=== PATIENT | male | born 1960 | race Caucasian/White ===

== ENCOUNTER 2019-06-16 06:54 | Observation (INO) ==
[~2019-06-16 06:54] MED LIST: SENSORCAINE 0.25%/EPI 1:200,000 ONE
[2019-06-16] MEDS ORDERED: FENTANYL ONE (07:15)
[2019-06-16] MEDS ORDERED: DIPRIVAN 1% ONE ×2 (07:15→09:31)
[2019-06-16] MEDS ORDERED: ZOFRAN ONE (07:20)
[2019-06-16] MEDS ORDERED: QUELICIN (DOSE) ONE ×2 (07:20→09:59)
[2019-06-16] MEDS ORDERED: ZEMURON ONE ×3 (07:20→11:34)
[2019-06-16] MEDS ORDERED: SENSORCAINE 0.25%/EPI 1:200,000 INJ ONE (07:45)
[2019-06-16] MEDS ORDERED: KEFZOL 1 GM/D5W 2 GM/100 ML IVPB ONE (08:00)
[2019-06-16] MEDS ORDERED: REGLAN ONE (08:00)
[2019-06-16] MEDS ORDERED: LR 1,000 ML ONE ×2 (08:00→08:16)
[2019-06-16] MEDS ORDERED: PEPCID ONE (08:00)
[2019-06-16] MEDS ORDERED: B & O 16A SUPP ONE (08:16)
[2019-06-16 08:35] LABS: HEMATOCRIT 43.3 % (42.0-52.0); HEMOGLOBIN 14.6 g/dL (14.0-18.0); MCH 30.5 PG (27-31); MCHC 33.7 g/dL (33-37); MCV 90.6 FL (81-99); MPV 10.3 FL (7.4-10.4); RBC 4.78 XMIL (4.7-6.1); RDW 12.9 % (11.5-14.5); WBC 8.49 X1000 (4.8-10.8)
[2019-06-16 08:59] LABS: AGAP 10; BUN 13 mg/dL (8-22); CALCIUM 9.1 mg/dL (8.8-10.2); CHLORIDE 103 mmol/L (98-107); COSMO 280; CREATININE 0.9 mg/dL (0.7-1.2); ESTIMATED GFR > 60; GLUCOSE 105 mg/dL (70-104); POTASSIUM 4.2 mmol/L (3.5-5.1); SODIUM 140 mmol/L (136-145); TCO2 27 mmol/L (25-35)
[2019-06-16 09:08] LABS: INR 1.02; PROTIME 13.5 Seconds (11.0-16.0)
[2019-06-16 09:09] LABS: PTT 32.6 Seconds (22.3-41.8)
[2019-06-16] MEDS ORDERED: BRIDION ONE (09:29)
[2019-06-16 10:53] LABS: URINE SOURCE CATH
[2019-06-16 11:02] LABS: URINE WBC <10 /HPF (<10)
[2019-06-16 11:03] LABS: BILIRUBIN URINE NEGATIVE (NEGATIVE); BLOOD URINE NEGATIVE (NEGATIVE); COLOR YELLOW; GLUCOSE URINE NEGATIVE (NEGATIVE); KETONE URINE NEGATIVE (NEGATIVE); LEUKOCYTES URINE NEGATIVE (NEGATIVE); NITRITE URINE NEGATIVE (NEGATIVE); PH URINE 5.5; PROTEIN URINE NEGATIVE (NEGATIVE); SP GRAVITY URINE 1.019; TURBIDITY URINE CLEAR (CLEAR); UR EPITHELIAL CELLS <10 /HPF (<10); URINE BACTERIA NEGATIVE /HPF; URINE RBC <10 /HPF (<10); UROBILINOGEN URINE NORMAL (NORMAL)
[2019-06-16] MEDS ORDERED: DILAUDID ONE (11:57)
[2019-06-16] MEDS ORDERED: XYLOCAINE-MPF 2% ONE (12:05)
[2019-06-16] MEDS: DILAUDID ONE ×4 (12:48→13:12)
[2019-06-16] MEDS ORDERED: NS 1,000 ML ONE (12:55)
[2019-06-16] MEDS ORDERED: MORPHINE IV PRN (13:31)
[2019-06-16] MEDS ORDERED: PERCOCET-10 ONE (13:32)
[2019-06-16] MEDS ORDERED: ZOFRAN IV PRN (13:45)
[2019-06-16] MEDS ORDERED: LABETALOL IV PRN (13:45)
[2019-06-16] MEDS ORDERED: BENADRYL LIQUID PO PRN (13:45)
[2019-06-16] MEDS ORDERED: PHENERGAN IV PRN (13:45)
[2019-06-16] MEDS ORDERED: OXY IR PO PRN ×2 (13:45)
[2019-06-16] MEDS ORDERED: DITROPAN PO PRN (13:45)
[2019-06-16] MEDS ORDERED: PHENERGAN PO PRN (13:45)
[2019-06-16] MEDS ORDERED: BENADRYL IV PRN (13:45)
[2019-06-16] MEDS ORDERED: PHENERGAN PR PRN (13:45)
[2019-06-16] MEDS ORDERED: SODIUM CHLORIDE 0.9% INJ PRN (13:45)
[2019-06-16] MEDS ORDERED: DILAUDID IV PRN (13:45)
[2019-06-16] MEDS ORDERED: OFIRMEV 1000 MG/ISOTONIC SOLN 1,000 MG/100 ML BOTTLE IV PRN (16:00)
[2019-06-16] MEDS: KEFZOL 2 GM/D5W 2 GM/50 ML IVPB IV SCH (16:43)
[2019-06-16] MEDS: NS 1,000 ML IV SCH (16:43)
[2019-06-16] MEDS: OXY IR PO SCH ×2 (16:43→22:06)
[2019-06-16] MEDS ORDERED: NORVASC PO SCH (21:00)
[2019-06-16] MEDS ORDERED: PRILOSEC PO SCH (21:00)
[2019-06-16] MEDS ORDERED: FLEXERIL PO SCH (21:00)
[2019-06-16] MEDS ORDERED: LIPITOR PO SCH (21:00)
[2019-06-16] MEDS: COLACE PO SCH (22:06)
[2019-06-16] MEDS: PERIDEX MT SCH (22:10)
[2019-06-17] MEDS: KEFZOL 2 GM/D5W 2 GM/50 ML IVPB IV SCH ×3 (02:17→09:33)
[2019-06-17] MEDS: NS 1,000 ML IV SCH (02:17)
[2019-06-17 07:29] LABS: HEMATOCRIT 40.7 % (42.0-52.0); HEMOGLOBIN 13.6 g/dL (14.0-18.0); MCH 30.5 PG (27-31); MCHC 33.4 g/dL (33-37); MCV 91.3 FL (81-99); MPV 10.5 FL (7.4-10.4); RBC 4.46 XMIL (4.7-6.1); WBC 14.07 X1000 (4.8-10.8)
[2019-06-17 07:35] VITALS: BP 134/78
[2019-06-17] MEDS: PERIDEX MT SCH (07:59)
[2019-06-17] MEDS: OXY IR PO SCH (07:59)
[2019-06-17] MEDS: COLACE PO SCH (07:59)
[2019-06-17 08:00] LABS: AGAP 9; BUN 13 mg/dL (8-22); CALCIUM 8.5 mg/dL (8.8-10.2); CHLORIDE 102 mmol/L (98-107); COSMO 273; CREATININE 0.8 mg/dL (0.7-1.2); ESTIMATED GFR > 60; GLUCOSE 124 mg/dL (70-104); SODIUM 136 mmol/L (136-145); TCO2 25 mmol/L (25-35)
--- NOTE | 2019-07-18 12:01 | OPERATIVE NOTE ---
PROCEDURE DATE: 06/16/2019 SURGEON: Dr. Elia Rivera. PREOPERATIVE DIAGNOSIS: High-risk prostate adenocarcinoma, elevated prostate-specific antigen. POSTOPERATIVE DIAGNOSIS: High-risk prostate adenocarcinoma, elevated prostate-specific antigen. PROCEDURE NAME: Robotic-assisted laparoscopic prostatectomy with bilateral pelvic lymph node dissection and laparoscopic urethral suspension. INDICATIONS: A 59-year-old male with high-grade prostate cancer. He had PSA elevation up to 7.6. He underwent prostate biopsy on 05/12/2019. Pathology revealed Marion 8 prostate adenocarcinoma in 6 out of 12 cores. He had unremarkable bone scan and CAT scan, and wants to proceed with definitive surgical intervention. He was counseled on the nature of his aggressive disease and higher than typical risk of long-term urinary incontinence and erectile dysfunction. He wants to proceed and voiced understanding. FINDINGS: Watertight vesicourethral anastomosis at 240 mL at the conclusion of the case. DESCRIPTION OF PROCEDURE: After obtaining informed consent, the patient was brought to the operating room. Perioperative antibiotics and general endotracheal anesthesia were administered. He was placed in the lithotomy position, prepped and draped in a sterile fashion. An 18-[place] Dawson catheter was inserted and bladder was drained. We made a small stab incision in his left upper quadrant and introduced a Veress needle connected to a saline-filled syringe. We confirmed positive drop test, followed by aspiration of fluid in the syringe without evidence of GI contents or blood. This was followed by insufflating pneumoperitoneal cavity to 15 mmHg. Following that, we used 10 mL of Marcaine with epinephrine to anesthetize the standard trocar sites. He has had left robotic partial nephrectomy for large cyst and I used 1 of those ports as our clinical trials assistant port. Bovie electrocautery was used to incise the skin. A 12 mm trocar was introduced, followed by insertion of a robotic camera. The peritoneal cavity was examined and I was able to place the rest of the trocars under direct vision. He was then placed in steep Trendelenburg position and the robot was docked. Peritoneum was incised 3 cm above the rectum and dissection extended until right vas deferens was identified, dissected, and transected, followed by identification and isolation of right seminal vesicle. We then isolated, dissected, and transected the left vas deferens, followed by identification of left seminal vesicle. We dissected anterior to vas deferens to the level of prostate and then posteriorly by incising the Denonvilliers' fascia and developing perirectal space. We incised lateral to medial umbilical ligament on either side, allowing us to drop the bladder. Once space of Retzius was accessed, fat was cleared off of endopelvic fascia. The fascia was incised bilaterally and dissection followed the contour of the prostate toward the apex. Puboprostatic ligaments were divided sharply. The superficial dorsal venous complex was controlled with bipolar electrocautery. Deep dorsal venous complex was controlled with 0 V-Loc suture in a [id number] fashion with periosteal elevation. Bladder neck was identified by gentle tugging on the Dawson catheter with the balloon in place. Monopolar cautery was used to incise the bladder neck. Dawson catheter came into the view and was placed on anterior traction. The bladder neck was transected circumferentially and then the plane was developed between the bladder and the prostate, allowing us to ultimately visualize the previously dissected seminal vesicles and vas deferens. We brought those and placed those on anterior traction. Neurovascular bundles were identified posterolaterally and freed with Hem-O- Rajesh clips. Judicious cautery was used. This was followed by dissecting posterior to the prostate to its apex. We then sharply divided the apex. I did not use maximal urethral length preservation technique given the aggressive nature and extent of his disease. Following that, the prostate was free. The examination of the operative field showed no evidence of active bleeding. We decreased the pneumoperitoneum pressure to 3 mmHg and confirmed excellent hemostasis. Attention was turned to the pelvic lymph node dissection. On the right side, the bladder was reflected medially with the fourth arm. Right external iliac vein was identified and lymph node packet was grasped just caudal to it. The lymph node packet was carefully dissected off with the following boundaries: Laterally pelvic side wall, medially perivesical fat, cephalad to the confluence of the external iliac vein and to common iliac vein, and posteriorly to the obturator vessel and the nerve. Please note, the obturator nerves were seen and preserved during dissection. The lymph node packet was placed into EndoCatch bag. Decreasing pneumoperitoneum pressure to 3 mmHg revealed no evidence of bleeding. Surgicel SNoW hemostatic agent was placed into the lymphadenectomy bed. We performed the same thing on the left side with identical margins. The lymph node packet was also placed into EndoCatch bag. Decreased pneumoperitoneal pressure showed no evidence of active bleeding and the Surgicel SNoW hemostatic agent was placed into the lymphadenectomy bed. Attention was then turned to Kenneth stitch. Perivesical and periurethral fascia were reapproximated using 3 V-Loc suture and those sutures were saved for future urethral suspension. Formal vesicourethral anastomosis was performed with another 3-0 V-Loc suture in a clockwise and counterclockwise fashion, ultimately cross-tying the sutures. Once that was done, we placed an 18- [place] fresh Dawson catheter and vesicoureteral anastomosis was tested with 240 mL of sterile fluid. There was no evidence of leakage. We then decreased pneumoperitoneal pressure and once again inspected for hemostasis. Following that, laparoscopic urethral suspension was performed by using previously placed Kenneth sutures and threading them through the periosteum just lateral to the mid pubis and elevating the urethra to appropriate traction. We then decreased pneumoperitoneal pressure one last time to 3 mmHg and inspected the entire field. There was no evidence of bleeding. There was no evidence of obvious injury. Given his generalized oozing, I elected to place a Kb drain through the fourth arm. It was introduced under direct vision and secured to the skin with 2-0 nylon suture. The robot was then undocked. He was returned in lithotomy position. Supraumbilical incision was extended and the prostate was delivered as well as the lymph nodes. All wounds were copiously irrigated. A #1 PDS suture was used to close the supraumbilical fascia in a running style. [employer] trocar fascia was closed with 0 Vicryl suture in a [id number] fashion. Wounds were irrigated again. A 4-0 Monocryl suture was used for subcuticular closure, followed by application of Covidien adhesive agent. He was extubated and taken to the PACU for further recovery. ESTIMATED BLOOD LOSS: Less than 300 mL. COMPLICATIONS: None. SPECIMENS: One labeled as prostate gland, two labeled as pelvic lymph notes. DRAINS: An 18-[place] Dawson catheter. DISPOSITION: To PACU and subsequently the floor for observation with Dawson catheter to gravity drainage and Kb drain to bulb suction. cc: Elia Rivera MD
== END 2019-06-17 11:03 | disposition home or self-care (01) ==
LOC: 4N 06:54 → OR 06:54
PROVIDERS: ADMIT Urology; ATTEND Urology